=== PATIENT | male | born 1970 | race Caucasian/White ===

== ENCOUNTER 2018-12-07 03:28 | Observation (INO) ==
[2018-12-07] MEDS ORDERED: Aspirin 81 MG TAB.CHEW PO ONE (03:32)
[2018-12-07] MEDS ORDERED: Nitroglycerin 0.4 MG TAB.SUBL SL PRN ×2 (03:32→09:24)
--- NOTE | 2018-12-07 03:47 | Emergency Department Note ---
Disposition Clinical Impression: Elevated troponin, Atrial fibrillation with RVR Chest pain Qualifiers: Chest pain type: other chest pain Qualified Code(s): R07.89 - Other chest pain; R07.8 - Other chest pain Disposition: Admitted As Inpatient Condition: Undetermined Instructions: Chest Pain (ED) Referrals: Bruce Tripathi DO [Primary Care Provider] - Forms: ED Satisfaction Letter Time of Disposition: 06:32 Chest Pain HPI - General Stated Complaint: chest pain, rt shoulder/arm pain Time Seen by Provider: 12/07/18 03:32 Source: patient, family Mode of arrival: ambulatory Limitations: no limitations Vital Signs Reviewed: Yes Nursing Notes Reviewed: Yes - History of Present Illness HPI Narrative: 48-year-old male past medical history of atrial fibrillation requiring electrical cardioversion, 3 prior myocardial infarctions was 7 stent placements. Most recent IA in 2014. Patient is on clopidogrel as anticoagulation Patient states that approximately 1 AM he was walking up the stairs after coming back from work and experienced sudden onset crushing midsternal chest pain with radiation into his right shoulder and upper extremity. Patient states shortness of breath and diaphoresis Patient attempted to rest after this onset thinking that it would pass but symptoms continued to worsen. Patient states that symptoms are similar to his prior heart attacks. Pt complaint: chest pain Onset (ago): hour(s) Duration: gradually worsening Onset: during exertion Pain Location: substernal, right chest Severity: severe Severity scale (1-10): 10 Quality: other (Crushing) Pain Radiation: RUE Improves with: nothing Worsens with: exertion Associated symptoms: Reports: nausea, diaphoresis, dyspnea, palpitations Treatments prior to arrival chest pain: none - Related Data Home Medications Medication Instructions Recorded Confirmed Metoprolol [Lopressor] 50 mg PO BID 11/03/15 04/16/18 Sertraline [Zoloft] 150 mg PO HS 11/03/15 04/16/18 Losartan Potassium [Cozaar] 50 mg PO HS 01/27/16 04/16/18 Nitroglycerin [Nitrostat] 0.4 mg SL Q5-10MIN PRN 01/27/16 02/19/18 Isosorbide MONOnitrate (24 HR) 30 mg PO HS 11/08/17 04/16/18 [Imdur] Buspirone HCl [Buspar] 7.5 mg PO BID 02/19/18 04/16/18 Clopidogrel [Plavix] 75 mg PO HS 02/19/18 04/16/18 buPROPion HCl [Bupropion HCl Sr] 200 mg PO BID 02/19/18 04/16/18 metFORMIN [Glucophage] 500 mg PO BIDWM 02/19/18 04/16/18 Aspirin Enteric Coated [Aspirin EC] 81 mg DAILY 04/16/18 04/16/18 Previous Rx's Medication Instructions Recorded OxyCODONE/APAP 5/325 [Percocet 1 each PO Q6HR PRN 7 Days #14 04/16/18 5/325 MG] tablet Allergies Allergy/AdvReac Type Severity Reaction Status Date / Time Sulfa (Sulfonamide Allergy Rash Verified 04/16/18 10:44 Antibiotics) promethazine [From Phenergan] AdvReac Agitated Verified 04/16/18 10:44 All systems ED: reviewed and negative except as stated. Review of Systems: As Per HPI Cardiovascular: Reports: chest pain, palpitations, dyspnea on exertion Respiratory: Reports: dyspnea Gastrointestinal: Reports: nausea. Denies: abdominal pain, vomiting Musculoskeletal: Denies: back pain, neck pain Neurological: Reports: headache, weakness, numbness, paresthesias, other (Lightheadedness/dizziness) Chest Pain PMH - Past Medical History Medical history: Reports: coronary artery disease, diabetes, hyperlipidemia, hypertension Surgical history: Reports: angioplasty/stent, other Psychiatric history: Reports: anxiety, depression, panic disorder, prior suicide attempt - Social History Smoking Status: Current every day smoker Alcohol use: Reports: occasionally Drug use: Reports: none Physical Exam - General Limitations: no limitations General appearance: alert, in distress - Head Head exam: atraumatic, normocephalic, normal inspection - Eye Eye exam: Present: normal appearance, PERRL, EOMI. Absent: scleral icterus, conjunctival injection - Neck Neck exam: Present: normal inspection, trachea midline - Chest Chest inspection: Present: normal inspection, symmetric chest wall rise. Ab sent: tenderness - Respiratory Respiratory exam: Present: normal lung sounds bilaterally. Absent: respiratory distress, wheezes, stridor, accessory muscle use, prolonged expiratory phase - Cardiovascular Cardiovascular exam: Present: tachycardia, irregular rhythm, normal heart sounds, +S1, +S2. Absent: systolic murmur, diastolic murmur, rubs, gallop, clicks, JVD, +S3, +S4 - Abdominal Exam Abdominal exam: Present: soft, Non-Tender, normal bowel sounds. Absent: distention, guarding, rebound, rigidity, organomegaly - Extremities Exam Extremities exam: Present: normal inspection. Absent: pedal edema - Neurological Exam Neurological exam: Present: alert, oriented X3 - Psychiatric Psychiatric exam: Present: anxious - Skin Skin exam: Present: warm, intact, normal color, diaphoresis. Absent: rash, cyanosis, erythema, pallor, mottled Course Course Narrative: A. fib with RVR, concerned for ACS EKG/old EKG, chest x-ray, troponin, BNP, PT/PTT/INR Diltiazem titration for management of A. fib with RVR Nitroglycerin for management chest pain. - Reevaluation(s) Reevaluation #1: Patient given one sublingual nitroglycerin with complete resolution of his symptoms. Patient still A. fib with RVR We will proceed with Cardizem drip Patient will be admitted to hospitalist medicine service for further evaluation and management of new onset A. fib with RVR Vital Signs Temperature 98.0 F 12/07/18 03:36 Pulse Rate 124 12/07/18 03:36 Respiratory Rate 20 12/07/18 03:36 Blood Pressure 141/92 12/07/18 03:36 O2 Sat by Pulse Oximetry 96 12/07/18 03:36 Temperature 98.0 F 12/07/18 03:36 Pulse Rate 90 12/07/18 06:21 Respiratory Rate 17 12/07/18 06:21 Blood Pressure 95/63 12/07/18 06:21 O2 Sat by Pulse Oximetry 98 12/07/18 06:21 Oxygen Delivery Oxygen Delivery Room Air Chest Pain - Lab Data Lab results reviewed: Yes I reviewed the patient's lab results. Result diagrams: 12/07/18 04:24 12/07/18 04:24 Lab Results 12/07/18 12/07/18 12/07/18 Range/Units 04:24 04:24 04:24 WBC 12.2 H (4.3-11.1) K/mcL RBC 5.71 H (4.19-5.50) M/mcL Hgb 15.2 (12.9-16.9) g/dL Hct 46.9 (37.5-50.1) % MCV 82.1 L (83.0-100.0) fL MCH 26.6 L (28.0-33.3) pg MCHC 32.4 (31.6-35.5) g/dL RDW 13.8 (11.5-14.5) % Plt Count 299 (140-400) K/mcL MPV 10.9 (9.4-12.4) fL Immature Gran % 0.3 (0-4) % Seg Neutrophils % 64.4 % Lymphocytes % 28.0 % Monocytes % 6.0 % Eosinophils % 0.9 % Basophils % 0.4 % Neutrophils # 7.9 (1.6-8.9) K/mcL Lymphocytes # 3.4 (0.6-4.6) K/mcL Monocytes # 0.7 (0.0-1.3) K/mcL Eosinophils # 0.1 (0.0-0.6) K/mcL Basophils # 0.1 (0.0-0.2) K/mcL PT 10.8 (9.4-12.1) Seconds INR 1.0 APTT 27.4 (26.0-36.0) Seconds Heparin Anti-Xa, Unfract 0.00 L (0.30-0.70) IU/mL Sodium (136-145) mEq/L Potassium (3.5-5.1) mEq/L Chloride (98-107) mEq/L Carbon Dioxide (23-29) mEq/L BUN (6-20) mg/dL Creatinine (0.70-1.30) mg/dL Est GFR ( Amer) (> 60) Est GFR (Non-Af Amer) (> 60) BUN/Creatinine Ratio (6-26) Glucose (70-105) mg/dL Calculated Osmolality (280-300) Calcium (8.6-10.3) mg/dL Troponin I (< 0.04) ng/mL B-Natriuretic Peptide 51 (Less than 100) pg/mL 12/07/18 Range/Units 04:24 WBC (4.3-11.1) K/mcL RBC (4.19-5.50) M/mcL Hgb (12.9-16.9) g/dL Hct (37.5-50.1) % MCV (83.0-100.0) fL MCH (28.0-33.3) pg MCHC (31.6-35.5) g/dL RDW (11.5-14.5) % Plt Count (140-400) K/mcL MPV (9.4-12.4) fL Immature Gran % (0-4) % Seg Neutrophils % % Lymphocytes % % Monocytes % % Eosinophils % % Basophils % % Neutrophils # (1.6-8.9) K/mcL Lymphocytes # (0.6-4.6) K/mcL Monocytes # (0.0-1.3) K/mcL Eosinophils # (0.0-0.6) K/mcL Basophils # (0.0-0.2) K/mcL PT (9.4-12.1) Seconds INR APTT (26.0-36.0) Seconds Heparin Anti-Xa, Unfract (0.30-0.70) IU/mL Sodium 135 L (136-145) mEq/L Potassium 3.8 (3.5-5.1) mEq/L Chloride 105 (98-107) mEq/L Carbon Dioxide 23 (23-29) mEq/L BUN 20 (6-20) mg/dL Creatinine 1.02 (0.70-1.30) mg/dL Est GFR ( Amer) > 60 (> 60) Est GFR (Non-Af Amer) > 60 (> 60) BUN/Creatinine Ratio 20 (6-26) Glucose 189 H (70-105) mg/dL Calculated Osmolality 288 (280-300) Calcium 8.9 (8.6-10.3) mg/dL Troponin I 0.05 H* (< 0.04) ng/mL B-Natriuretic Peptide (Less than 100) pg/mL - Radiology Data Radiology results reviewed: Yes I reviewed the patient's radiology results. Chest X-Ray 12/07/18 03:32 IMPRESSION: No acute disease. D/ / Mauro Toth MD / Mauro Toth MD Interpreting Provider: Mauro Toth MD - EKG Data EKG attestation: Yes I reviewed and interpreted this EKG. EKG results narrative: Patient EKG shows atrial fibrillation with rapid ventricular response with a heart rate of 124 bpm QRS duration of 93 ms, QT/QTc interval 317/456 ms respectively. There are no significant ST segment elevations, depressions, pathologic Q waves, abnormal T-wave inversions, or any other signs of acute ischemic change. This EKG is generally consistent with the edition of atrial fibrillation from prior EKG performed on 11/08/2017. Heart Score - Score History: Moderately Suspicious EKG: Normal Age: 45-65 Risk Factors: Equal/Greater than 3 risk factor or history of atherosclerotic disease Troponin: 1-3x normal limit HEART Score Total: 5 Attestation Statement - Attestation Attestation: I, Bobby Walden DO, examined this patient [id number] and my medical decision-making was reviewed with Dr. Joss Fuller, Resident Physician. I agree with the documented findings, disposition and treatment plan as described except to the extent set forth below. I personally supervised and was present for the coronado/critical portions of the procedures completed by the resident documented below. Please see my progress notes for details.
--- NOTE | 2018-12-07 04:24 | Emergency Department Note ---
Disposition Clinical Impression: Elevated troponin, Atrial fibrillation with RVR Chest pain Qualifiers: Chest pain type: other chest pain Qualified Code(s): R07.89 - Other chest pain Disposition: Admitted As Inpatient Condition: Undetermined Time of Disposition: 06:36 General Adult HPI - General Chief complaint: ED Chest Pain Stated complaint: chest pain, rt shoulder/arm pain Time Seen by Provider: 12/07/18 03:32 Source: patient, family Mode of arrival: ambulatory Limitations: no limitations - History of Present Illness Pain Scale: 10 - Related Data Home Medications Medication Instructions Recorded Confirmed Metoprolol [Lopressor] 50 mg PO BID 11/03/15 04/16/18 Sertraline [Zoloft] 150 mg PO HS 11/03/15 04/16/18 Losartan Potassium [Cozaar] 50 mg PO HS 01/27/16 04/16/18 Nitroglycerin [Nitrostat] 0.4 mg SL Q5-10MIN PRN 01/27/16 02/19/18 Isosorbide MONOnitrate (24 HR) 30 mg PO HS 11/08/17 04/16/18 [Imdur] Buspirone HCl [Buspar] 7.5 mg PO BID 02/19/18 04/16/18 Clopidogrel [Plavix] 75 mg PO HS 02/19/18 04/16/18 buPROPion HCl [Bupropion HCl Sr] 200 mg PO BID 02/19/18 04/16/18 metFORMIN [Glucophage] 500 mg PO BIDWM 02/19/18 04/16/18 Aspirin Enteric Coated [Aspirin EC] 81 mg DAILY 04/16/18 04/16/18 Previous Rx's Medication Instructions Recorded OxyCODONE/APAP 5/325 [Percocet 1 each PO Q6HR PRN 7 Days #14 04/16/18 5/325 MG] tablet Allergies Allergy/AdvReac Type Severity Reaction Status Date / Time Sulfa (Sulfonamide Allergy Rash Verified 04/16/18 10:44 Antibiotics) promethazine [From Phenergan] AdvReac Agitated Verified 04/16/18 10:44 Cardiovascular: Reports: chest pain, palpitations, dyspnea on exertion Respiratory: Reports: dyspnea Gastrointestinal: Reports: nausea. Denies: abdominal pain, vomiting Musculoskeletal: Denies: back pain, neck pain Neurological: Reports: headache, weakness, numbness, paresthesias, other (Lightheadedness/dizziness) Past Medical History - Past Medical History Medical history: Reports: coronary artery disease, diabetes, hyperlipidemia, hypertension Surgical history: Reports: angioplasty/stent, other Psychiatric history: Reports: anxiety, depression, panic disorder, prior suicide attempt - Social History Smoking Status: Current every day smoker Smokeless Tobacco Status: No Alcohol use: Reports: occasionally Drug use: Reports: none Physical Exam - General Limitations: no limitations General appearance: alert, in distress Course Vital Signs Temperature 98.0 F 12/07/18 03:36 Pulse Rate 124 12/07/18 03:36 Respiratory Rate 20 12/07/18 03:36 Blood Pressure 141/92 12/07/18 03:36 O2 Sat by Pulse Oximetry 96 12/07/18 03:36 Temperature 98.0 F 12/07/18 03:36 Pulse Rate 90 12/07/18 06:21 Respiratory Rate 17 12/07/18 06:21 Blood Pressure 95/63 12/07/18 06:21 O2 Sat by Pulse Oximetry 98 12/07/18 06:21 Oxygen Delivery Oxygen Delivery Room Air Medical Decision Making - Lab Data Result diagrams: 12/07/18 04:24 12/07/18 04:24 Lab Results 12/07/18 12/07/18 12/07/18 Range/Units 04:24 04:24 04:24 WBC 12.2 H (4.3-11.1) K/mcL RBC 5.71 H (4.19-5.50) M/mcL Hgb 15.2 (12.9-16.9) g/dL Hct 46.9 (37.5-50.1) % MCV 82.1 L (83.0-100.0) fL MCH 26.6 L (28.0-33.3) pg MCHC 32.4 (31.6-35.5) g/dL RDW 13.8 (11.5-14.5) % Plt Count 299 (140-400) K/mcL MPV 10.9 (9.4-12.4) fL Immature Gran % 0.3 (0-4) % Seg Neutrophils % 64.4 % Lymphocytes % 28.0 % Monocytes % 6.0 % Eosinophils % 0.9 % Basophils % 0.4 % Neutrophils # 7.9 (1.6-8.9) K/mcL Lymphocytes # 3.4 (0.6-4.6) K/mcL Monocytes # 0.7 (0.0-1.3) K/mcL Eosinophils # 0.1 (0.0-0.6) K/mcL Basophils # 0.1 (0.0-0.2) K/mcL PT 10.8 (9.4-12.1) Seconds INR 1.0 APTT 27.4 (26.0-36.0) Seconds Heparin Anti-Xa, Unfract 0.00 L (0.30-0.70) IU/mL Sodium (136-145) mEq/L Potassium (3.5-5.1) mEq/L Chloride (98-107) mEq/L Carbon Dioxide (23-29) mEq/L BUN (6-20) mg/dL Creatinine (0.70-1.30) mg/dL Est GFR ( Amer) (> 60) Est GFR (Non-Af Amer) (> 60) BUN/Creatinine Ratio (6-26) Glucose (70-105) mg/dL Calculated Osmolality (280-300) Calcium (8.6-10.3) mg/dL Troponin I (< 0.04) ng/mL B-Natriuretic Peptide 51 (Less than 100) pg/mL 12/07/18 Range/Units 04:24 WBC (4.3-11.1) K/mcL RBC (4.19-5.50) M/mcL Hgb (12.9-16.9) g/dL Hct (37.5-50.1) % MCV (83.0-100.0) fL MCH (28.0-33.3) pg MCHC (31.6-35.5) g/dL RDW (11.5-14.5) % Plt Count (140-400) K/mcL MPV (9.4-12.4) fL Immature Gran % (0-4) % Seg Neutrophils % % Lymphocytes % % Monocytes % % Eosinophils % % Basophils % % Neutrophils # (1.6-8.9) K/mcL Lymphocytes # (0.6-4.6) K/mcL Monocytes # (0.0-1.3) K/mcL Eosinophils # (0.0-0.6) K/mcL Basophils # (0.0-0.2) K/mcL PT (9.4-12.1) Seconds INR APTT (26.0-36.0) Seconds Heparin Anti-Xa, Unfract (0.30-0.70) IU/mL Sodium 135 L (136-145) mEq/L Potassium 3.8 (3.5-5.1) mEq/L Chloride 105 (98-107) mEq/L Carbon Dioxide 23 (23-29) mEq/L BUN 20 (6-20) mg/dL Creatinine 1.02 (0.70-1.30) mg/dL Est GFR ( Amer) > 60 (> 60) Est GFR (Non-Af Amer) > 60 (> 60) BUN/Creatinine Ratio 20 (6-26) Glucose 189 H (70-105) mg/dL Calculated Osmolality 288 (280-300) Calcium 8.9 (8.6-10.3) mg/dL Troponin I 0.05 H* (< 0.04) ng/mL B-Natriuretic Peptide (Less than 100) pg/mL Attestation Statement - Attestation Attestation: I, Bobby Walden DO, examined this patient [id number] and my medical decision-making was reviewed with Dr. Joss Fuller, Resident Physician. I agree with the documented findings, disposition and treatment plan as described except to the extent set forth below. I personally supervised and was present for the coronado/critical portions of the procedures completed by the resident documented below. Please see my progress notes for details. 48-year-old male presents emergency room for evaluation of generalized chest tightness pain along with palpitations. Patient is a history of paroxysmal atrial fibrillation. His had to have electrical cardioversion completed in the past. Patient noticed the onset of the symptoms here today when he is going up some stairs. He has sharp pain in his right chest. It did not radiate up into his jaw or his back. Patient does have significant cardiovascular history with 7 stents in the past secondary to coronary artery disease. His most recent one was less than 6 months ago. Patient denies any falls trauma or injury. Patient does have some mild chest discomfort and pain on arrival here. His heart rate is elevated in the 120s to 150 range. He denies any shortness of breath fevers or chills. He has not had any nausea vomiting or diarrhea. No headache no vision change. No new medications. No other symptoms or issues. Patient is denying this being similar to his previous myocardial infarctions. Another had heart attack in the past pain went up into his right jaw and into his right shoulder blade. He does not have any of those symptoms at this time. Patient will have nitroglycerin aspirin and diltiazem drip started this point considering his EKG shows atrial fibrillation with rapid ventricular response. He feels like the presenting symptoms here today are more consistent with his rapid heart rate in comparison to actual myocardial infarction. His lungs are clear. His heart is irregular and tachycardic. Abdomen is soft no pulsatile masses or lesions. Patient has no history of aneurysm or dissection. Extremities otherwise normal. Patient has slight pressure and tightness in the chest wall at this time. Disposition to be determined workup and treatment course STABILIZATION abdomen established. Patient is otherwise describing no specific distress at this point. See detailed documentation the physical exam, medical intervention, medical decision-making and disposition in the resident physician's note. 45 minutes of critical care by the patient's treatment course secondary to multidisciplinary intervention and medication management. 0415 Patient's chest pain has completely resolved after one nitroglycerin. Patient will be started on heparin drip considering he does have a [id number] score of 3. Patient was only on aspirin and Plavix at baseline. He has no other acute concerns or issues. Patient is resting comfortably in the bed. Rate controlled be established in the disposition determined. Patient be monitoring emergency room until admission process is completed. 0600 Heparin drip is been started. Patient's heart rate is down in the 80s at this time with stable atrial fibrillation. His blood pressure did drop with the Cardizem at 5 mg per ourselves titrated down to 2. Patient is otherwise describing no complaints or symptoms at this time. His pain is gone is denying any sweating diaphoresis or discomfort. All the presenting issues here today are most likely secondary to the atrial fibrillation with rapid ventricular response. He did respond appropriately to medications. Patient was discussed with the hospitalist Dr. Figueroa who had no other concerns or issues at this point. Patient will be monitored here in the emergency department to the admission process is completed. Patient is otherwise stable and comfortable at the time of admission
[2018-12-07] MEDS ORDERED: *HR* Heparin 5,000 UNIT/ML VIAL IVP PRN (04:26)
[2018-12-07] MEDS ORDERED: *HR* Heparin 5,000 UNIT/ML VIAL IVP ONE (04:26)
[2018-12-07 04:49] LABS: Basophils # 0.1 K/mcL (0.0-0.2); Basophils % 0.4 %; Eosinophils # 0.1 K/mcL (0.0-0.6); Eosinophils % 0.9 %; Hematocrit 46.9 % (37.5-50.1); Hemoglobin 15.2 g/dL (12.9-16.9); Immature Granulocytes % 0.3 % (0-4); Lymphocytes # 3.4 K/mcL (0.6-4.6); Mean Corpuscular HGB Conc 32.4 g/dL (31.6-35.5); Mean Corpuscular Hemoglobin 26.6 pg (28.0-33.3); Mean Corpuscular Volume 82.1 fL (83.0-100.0); Mean Platelet Volume 10.9 fL (9.4-12.4); Monocytes # 0.7 K/mcL (0.0-1.3); Neutrophils # 7.9 K/mcL (1.6-8.9); Platelet Count 299 K/mcL (140-400); Red Blood Count 5.71 M/mcL (4.19-5.50); Red Cell Distribution Width 13.8 % (11.5-14.5); Segmented Neutrophils % 64.4 %
[2018-12-07 05:04] LABS: Prothrombin Time 10.8 Seconds (9.4-12.1)
[2018-12-07 05:07] LABS: Activated Partial Thrombo Time 27.4 Seconds (26.0-36.0)
[2018-12-07 05:10] LABS: BUN/Creatinine Ratio 20 (6-26); Blood Urea Nitrogen 20 mg/dL (6-20); Calcium 8.9 mg/dL (8.6-10.3); Carbon Dioxide 23 mEq/L (23-29); Chloride 105 mEq/L (98-107); Glucose 189 mg/dL (70-105); Osmolality,Calculated 288 (280-300); Potassium 3.8 mEq/L (3.5-5.1); Sodium 135 mEq/L (136-145); eGFR For Non-African Americans > 60 (> 60)
[2018-12-07 05:13] LABS: Troponin I 0.05 ng/mL (< 0.04)
[2018-12-07] MEDS ORDERED: Naloxone 0.4 MG/ML INJ IVP PRN (07:37)
--- NOTE | 2018-12-07 09:17 | Internal Med History&Physical ---
Date of Encounter: 12/07/18 Time of Encounter: 07:00 Internal Medicine - H&P: HPI Chief complaint: palpitations Admitted From: Home Plans for Post Hospital Care: Home History of present illness: Mr. Lester is a 48 year old male with history of CAD s/p stent in 11/2017 on DAPT and PAF s/p abalation 5 years ago at [facility] since the emergency department with complaint of palpitations. As per patient he was walking home and going up the stairs after playing poker with his friends and suddenly developed a burning sensation in the middle of her chest that was nonradiating, and 4 out of 10 at 1 AM. Immediately after the pain started he also felt as though his heart was"getting out of his chest". He has had long history of similar type of chest pain for more than 5 years now however the sensation of his heart racing and beating out of his chest was something new that he has not experienced in the past. He denies shortness of breath, calf swelling or tenderness, previous blood clots, orthopnea, PND or leg swelling. Chest pain self resolved however his heart continued to race so he decided to come to the emergency department. He cannot recall any alleviating or aggravating factors. He denies fever, chills, nausea, vomiting, diarrhea, heat or cold intolerance, cough, shortness of breath. However he does complain of diaphoresis when his symptoms started. He is a current everyday smoker, however denies sepsis of alcohol use. On the emergency department he was found to be in A. fib with RVR, elevated troponin of 0.04 so he was started on Cardizem drip and heparin drip and was endorsed for further management of atrial fibrillation Past Med Surg Social Fam HX - Past Medical History Medical history: coronary artery disease, diabetes, hyperlipidemia, hypertension Additional medical history: sleep apnea,morbid obesity, depression, hiatal hernia, meagan, rls, neurocardiogenic syncope, ahilles tendon tear, anxiety, chicken pox, gerd, patellofemoral joint disorder, spondlolisthesis, mi, Psychiatric history: anxiety, depression, panic disorder, prior suicide attempt - Past Surgical History Surgical History: angioplasty/stent, other Additional surgical history: Heart cath and stents x5. L4 and L5 surgery. bal loon surgery. right and left ACL repair bone spurs removed, achilles tendon repair x2 right and left, colonoscopy - Social History Smoking Status: Current every day smoker Smokeless Tobacco Status: No Alcohol use: occasionally Drug use: none Internal Medicine - H&P: Meds Metoprolol [Lopressor] 50 mg PO BID 11/03/15 [History] Sertraline [Zoloft] 150 mg PO HS 11/03/15 [History] Losartan Potassium [Cozaar] 50 mg PO HS 01/27/16 [History] Nitroglycerin [Nitrostat] 0.4 mg SL Q5-10MIN PRN 01/27/16 [History] Isosorbide MONOnitrate (24 HR) [Imdur] 30 mg PO HS 11/08/17 [History] Buspirone HCl [Buspar] 7.5 mg PO BID 02/19/18 [History] Clopidogrel [Plavix] 75 mg PO HS 02/19/18 [History] buPROPion HCl [Bupropion HCl Sr] 200 mg PO BID 02/19/18 [History] metFORMIN [Glucophage] 500 mg PO BIDWM 02/19/18 [History] Aspirin Enteric Coated [Aspirin EC] 81 mg DAILY 04/16/18 [History] OxyCODONE/APAP 5/325 [Percocet 5/325 MG] 1 each PO Q6HR PRN 7 Days #14 tablet 04/16/18 [Rx] Allergy/AdvReac Type Severity Reaction Status Date / Time Sulfa (Sulfonamide Allergy Rash Verified 04/16/18 10:44 Antibiotics) promethazine [From Phenergan] AdvReac Agitated Verified 04/16/18 10:44 All Systems PM: A 10-system review of systems was performed and is negative for pertinent findings except as documented above in the HPI. - Constitutional Vitals: Temp Pulse Resp BP Pulse Ox 97.4 F L 80 19 121/84 97 12/07/18 08:17 12/07/18 08:17 12/07/18 08:17 12/07/18 08:17 12/07/18 08:17 Exam: General: Patient is alert, oriented, no acute distress, orbits the obese Head: atraumatic, normocephalic, Eye: normal appearance, PERRL, no scleral icterus, no conjunctival injection ENT: mucous membranes moist, normal external ear exam Neck: normal inspection, trachea midline, full ROM, no carotid bruits Chest: normal inspection, symmetric chest rise Respiratory: Distant breath sounds secondary to body habitus Good respiratory effort. Bilateral breath sounds are clear without wheezing, crackles, or rhonchi. Cardiovascular: Distant heart sounds secondary to body habitus irregular s1 and s2 No clicks, rubs, gallops, or murmors. Abdomen: Bowel sounds present normoactive x-4 quadrants. Abdomen is soft, nond istended. no Epigastric tenderness. No guarding or rebound. No organomegaly noted, obese musculoskeletal: Spontaneously moving all extremities. no edema, no calf tenderness Skin: warm, dry, intact. Neuro: Alert and oriented x 3 no focal deficit Psych: Patient's affect is normal Internal Med - H&P Results - Labs CBC & Chem 7: 12/07/18 04:24 12/07/18 04:24 Labs: Short CBC 12/07/18 Range/Units 04:24 WBC 12.2 H (4.3-11.1) K/mcL Hgb 15.2 (12.9-16.9) g/dL Hct 46.9 (37.5-50.1) % Plt Count 299 (140-400) K/mcL Neutrophils # 7.9 (1.6-8.9) K/mcL BMP 12/07/18 04:24 Sodium 135 L Potassium 3.8 Chloride 105 Carbon Dioxide 23 BUN 20 Creatinine 1.02 Glucose 189 H Calcium 8.9 Cardiac Enzymes 12/07/18 Range/Units 04:24 Troponin I 0.05 H* (< 0.04) ng/mL - EKG Data -: EKG Interpreted by Myself (Atrial fibrillation, low voltage) - EKG Data Prior EKG available for review: yes When compared to previous EKG: there are significant changes (Atrial fibrillation) - Impressions ITS Impressions Chest X-Ray 12/07/18 03:32 IMPRESSION: No acute disease. D/ / Mauro Toth MD / Mauro Toth MD Interpreting Provider: Mauro Toth MD - Assessment and Plan (1) Atrial fibrillation with RVR Current Visit: Yes Status: Acute Assessment and plan: Has history of atrial fibrillation status post ablation at [facility] about 5 years ago chads vasc score of 3 Was started on Cardizem drip- currently rate is controlled so will discontinue drip and start his home metoprolol dose as he also has history of CAD. Was started on heparin drip- adjust as per protocol Cardiology was consulted will follow recommendations TSH U tox, alcohol level Echocardiogram Cardiac monitoring (2) Chest pain Current Visit: Yes Status: Acute Assessment and plan: Chest pain will rule out ACS Has history of CAD status post stentof Right PDA in November 2017 on dual antiplatelets We will continue with aspirin, hold Plavix as he has already completed one year of DAPT and now on heparin drip for Afib to avoid triple therapy. Troponin was 0.05 in the emergency department most likely secondary to A. fib with RVR ( supply vs demand mismatch) Continue to follow troponins every 6 hours along with EKG Cardiac monitoring Lipid panel, TSH, A1c Echocardiogram Cardiology was consulted as above will follow recommendations Continue with home medications if not contraindicated CXR: No acute disease. Qualifiers: Chest pain type: precordial pain Qualified Code(s): R07.2 - Precordial pain (3) Morbidly obese Current Visit: Yes Status: Acute Assessment and plan: Nutrition consult BMI is 52.2 (4) DVT prophylaxis Current Visit: Yes Status: Acute Assessment and plan: on heparin drip - Time Spent With Patient Total time spent is greater than 50% in coordination of care (as documented) at patient's floor/unit and/or counseling patient:
[2018-12-07] MEDS ORDERED: D5% in Water 1,000 ML IVC PRN (09:29)
[2018-12-07] MEDS ORDERED: Dextrose Gel 15 GM/37.5 ML TUBE PO PRN ×2 (09:29)
[2018-12-07] MEDS ORDERED: *HR* Dextrose 50 % in Water (Syg) 50 ML SYRINGE IVP PRN (09:29)
[2018-12-07] MEDS: Heparin 25,000 UNIT/250 ML D5W 25,000 UNIT/250 ML IV.SOLN IVC SCH ×2 (09:50→21:10)
--- NOTE | 2018-12-07 10:15 | Cardiology Consult Note ---
Date of Encounter: 12/07/18 Time of Encounter: 10:15 Assessment and Plan (1) Atrial fibrillation with RVR Current Visit: Yes Status: Acute Per Cardiology: History of A. fib ablation about 5 years ago at [facility]. Reports compliance with CPAP at home for JESSE. Previously not on anticoagulation. Currently on IV Cardizem drip 2.5 mg/hr. currently A. fib in the 80s to 90s and most recent blood pressure systolically in the 120s. Will increase Lopressor from home dose of 50 mg by mouth twice a day to 75 mg by mouth twice a day and wean off IV Cardizem. Echo pending. Regarding long-term anticoagulation, we will need to evaluate prior to discharge. On aspirin and Plavix with stenting in November 2017. (2) Elevated troponin Current Visit: Yes Status: Acute Per Cardiology: Trop 0.05 in setting of afib RVR. CP free. Continue to cycle troponins. Awaiting echo. Suspect demand ischemia in setting afib RVR, no cardiac rehab consult warranted. (3) CAD (coronary artery disease) Current Visit: No Status: Chronic Per Cardiology: Hx of CAD. [facility] 11/2017: Lesion Findings/Interventions * Left Main Coronary Artery The LMCA is angiographically free of disease. * Left Anterior Descending The Distal LAD is small in size.. There is a 20% stenosis in the Proximal LAD. There is a 70% stenosis in the Distal LAD. * Circumflex The Mid Circumflex is small in size.. There is a 95% stenosis in the Mid Circumflex. * Right Coronary Artery There is a 16 mm long, 95% stenosis in the Right PDA. The lesion has a ABI flow of 3. An intervention was performed on the Right PDA with a final stenosis of 0%. There were no lesion complications. The final ABI flow was 3. On asa, BB, long acting nitrate, will resume home statin and plavix. Qualifiers: Coronary Disease-Associated Artery/Lesion type: [place] artery [place] vs. transplanted heart: [place] heart Associated angina: angina presence unspecified Qualified Code(s): I25.10 - Atherosclerotic heart disease of [place] coronary artery without angina pectoris Discussion w patient/family: The assessment and plan as outlined above was discussed with the patient and/or family members who expressed understanding and agreement. All questions were answered. Thank you for involving us in the care of your patient. Please call with any questions. History of Present Illness Consult date: 12/07/18 Consult reason: Afib RVR Chief complaint: Palpitations History of present illness: Mr. Lester is a 48 year old male with a relevant past medical history of CAD, DM2, atrial fibrillation with ablation at [facility] about 5 years ago, morbid obesity, GERD, JESSE, neurocardiogenic syncope, nicotine abuse, history of anxiety, depression, and past suicide attempt. Cardiology consult for A. fib with RVR and mild troponin. Patient reports playing poker with friends last night because when home developed palpitations that lasted for a few hours. He denied any short of breath, dizziness, syncope, falls. Reports have some brief chest tightness initially and did take one sublingual nitroglycerin and symptoms resolved. Reports intermittent episodes of palpitations last for a few seconds and subsided about once per week over the past one month. Denies any chest pain symptoms. Reports compliance with medications. Reports on aspirin and Plavix at home. He denies any active bleeding or blood loss. Denies any history of falls. Reports compliance with CPAP for sleep apnea. He reports is in the process of cutting down smoking now smoking about a quarter pack per day-- indicates he did smoke 2 cigarettes plan cards last night. He reports drink alcohol about once per month for his monthly poker game and reports that for cans of beer last night. Past Med Surg Social Fam HX - Past Medical History Attestation: Yes The following information was validated with the patient. Source: patient, old records reviewed Medical history: coronary artery disease, diabetes, hyperlipidemia, hypertension Additional medical history: sleep apnea,morbid obesity, depression, hiatal hernia, jesse, rls, neurocardiogenic syncope, ahilles tendon tear, anxiety, chicken pox, gerd, patellofemoral joint disorder, spondlolisthesis, mi, Psychiatric history: anxiety, depression, panic disorder, prior suicide attempt - Past Surgical History Surgical History: angioplasty/stent, other Additional surgical history: Heart cath and stents x5. L4 and L5 surgery. balloon surgery. right and left ACL repair bone spurs removed, achilles tendon repair x2 right and left, colonoscopy - Social History Smoking Status: Current every day smoker Smokeless Tobacco Status: No Alcohol use: occasionally Drug use: none Medications and Allergies Metoprolol [Lopressor] 50 mg PO BID 11/03/15 [History] Sertraline [Zoloft] 150 mg PO HS 11/03/15 [History] Losartan Potassium [Cozaar] 50 mg PO HS 01/27/16 [History] Nitroglycerin [Nitrostat] 0.4 mg SL Q5-10MIN PRN 01/27/16 [History] Isosorbide MONOnitrate (24 HR) [Imdur] 30 mg PO HS 11/08/17 [History] Buspirone HCl [Buspar] 7.5 mg PO BID 02/19/18 [History] Clopidogrel [Plavix] 75 mg PO HS 02/19/18 [History] buPROPion HCl [Bupropion HCl Sr] 200 mg PO BID 02/19/18 [History] metFORMIN [Glucophage] 500 mg PO BIDWM 02/19/18 [History] Aspirin Enteric Coated [Aspirin EC] 81 mg DAILY 04/16/18 [History] OxyCODONE/APAP 5/325 [Percocet 5/325 MG] 1 each PO Q6HR PRN 7 Days #14 tablet 04/16/18 [Rx] Allergy/AdvReac Type Severity Reaction Status Date / Time Sulfa (Sulfonamide Allergy Rash Verified 04/16/18 10:44 Antibiotics) promethazine [From Phenergan] AdvReac Agitated Verified 04/16/18 10:44 All Systems Review: The remainder of the systems were reviewed and are negative - Cardiovascular Cardiovascular: as per HPI, chest pain at rest, palpitations Physical Examination Vital Signs, Last 4 Hours Temp Pulse Resp BP Pulse Ox 12/07/18 08:17 97.4 F L 80 19 121/84 97 12/07/18 06:21 90 17 95/63 98 General: Conversant, No Apparent Distress HEENT: Atraumatic, Normocephaly, Mucus Membranes Moist Neck: No JVD, Normal carotid pulses Cardiac: Reg Rate and Rhythm, Normal S1 and S2, No Murmur Lungs: Normal Breath Sounds, No Wheeze, Rales, Rhonchi Neuro: Alert and responsive, No focal deficits noted Abdomen: Soft, Non-Tender, Other (obese) Skin: No rashes noted on visualized skin Musculoskeletal: No Chest Wall Tenderness Extremities: No Clubbing, No Cyanosis, No Edema, Normal Pulses Results 12/07/18 04:24 12/07/18 04:24 Lab Results Laboratory Tests 12/07/18 12/07/18 12/07/18 04:24 04:24 04:24 WBC 12.2 H Hgb 15.2 Hct 46.9 INR 1.0 Creatinine Est GFR (Non-Af Amer) Troponin I B-Natriuretic Peptide 51 12/07/18 04:24 WBC Hgb Hct INR Creatinine 1.02 Est GFR (Non-Af Amer) > 60 Troponin I 0.05 H* B-Natriuretic Peptide ITS Impressions Chest X-Ray 12/07/18 03:32 IMPRESSION: No acute disease. D/ / Mauro Toth MD / Mauro Toth MD Interpreting Provider: Mauro Toth MD Active Medications Aspirin (Aspirin Ec) 81 mg PO DAILY [facility] Stop: 06/09/19 09:01 Dextrose/Water (Dextrose 50% (Syg)) 25 ml IVP AD PRN PRN Reason: Hypoglycemia Stop: 06/08/19 09:30 Glucagon (Glucagen) 1 mg IM ONCE PRN PRN Reason: Hypoglycemia Stop: 06/08/19 09:30 Glucose (Gluctose) 15 gm PO ONCE PRN PRN Reason: Hypoglycemia Stop: 06/08/19 09:30 Glucose (Gluctose) 30 gm PO ONCE PRN PRN Reason: Hypoglycemia Stop: 06/08/19 09:30 Heparin Sodium (Porcine) (Heparin) 9,000 unit IVP Q6HR PRN PRN Reason: SEE COMMENTS Stop: 06/08/19 04:27 Heparin Sodium (Porcine) (Heparin) 4,500 unit IVP Q6H PRN PRN Reason: SEE COMMENTS Stop: 06/08/19 04:27 Heparin Sodium/Dextrose (Heparin 25,000 Unit/250 Ml D5w) 25,000 unit in 250 mls @ 21.786 mls/hr IVC .[id number] SEAMUS; Protocol Stop: 06/08/19 04:31 Last Admin: 12/07/18 09:50 Dose: 14 unit/kg/hr, 21.8 mls/hr Documented by: Dextrose (Dextrose 5%) 1,000 mls @ 100 mls/hr IVC .Q10H PRN PRN Reason: HYPOGLYCEMIA Stop: 06/08/19 09:30 Insulin Human Lispro (Humalog) 0 units SQ TIDAC [facility]; Protocol Stop: 06/08/19 11:31 Insulin Human Lispro (Humalog) 0 units SQ HS [facility]; Protocol Stop: 06/08/19 21:01 Isosorbide Mononitrate (Imdur) 30 mg PO HS [facility] Stop: 06/08/19 21:01 Metoprolol Tartrate (Lopressor) 50 mg PO BID [facility] Stop: 06/08/19 09:31 Naloxone HCl (Narcan) 0.4 mg IVP Q2MPRN PRN PRN Reason: SEE COMMENTS Stop: 06/08/19 07:38 Nitroglycerin (Nitroglycerin) 0.4 mg SL Q5MPRN PRN PRN Reason: Chest Pain Stop: 06/08/19 03:33 Last Admin: 12/07/18 04:01 Dose: 0.4 mg Documented by: - Imaging and Cardiology Echo: pending Cardiac cath: report reviewed - EKG Interpretation EKG results cardiology: personally reviewed (afib RVR) Consult Discharge Plan - Plan Referrals: Bruce Tripathi DO [Primary Care Provider] - (Appointment has been requested. )
[2018-12-07 10:29] LABS: Ethanol < 10 mg/dL (Less than 10); Magnesium 2.1 mg/dL (1.6-2.6); Phosphorous 4.7 mg/dL (2.7-4.5)
[2018-12-07 10:33] LABS: Troponin I 0.05 ng/mL (< 0.04)
--- NOTE | 2018-12-07 11:33 | Event Note ---
Date of Encounter: 12/07/18 Time of Encounter: 11:30 - Cardiology Event Note Correction: per discussion with Dr. Yana Britton, it appears patient has not had ablation, but hx of DCCV. Plans for [facility] tomorrow.
[2018-12-07] MEDS: Insulin LISPRO 300 UNITS/3 ML VIAL SQ SCH ×2 (11:46→16:39)
[2018-12-07] MEDS ORDERED: Perflutren Lipid Microsphere 1.3 ML in 0.9 % Sodium Chloride 8.7 ML IVP ONE (13:34)
[2018-12-07] MEDS: *HR* Heparin 5,000 UNIT/ML VIAL IVP PRN (15:36)
[2018-12-07] MEDS ORDERED: Isosorbide MONOnitrate (24 HR) 30 MG TAB.ER.24H PO SCH (21:00)
[2018-12-07] MEDS ORDERED: Insulin LISPRO 300 UNITS/3 ML VIAL SQ SCH (21:00)
[2018-12-08 04:55] LABS: Basophils # 0.1 K/mcL (0.0-0.2); Eosinophils # 0.2 K/mcL (0.0-0.6); Hematocrit 47.3 % (37.5-50.1); Hemoglobin 15.3 g/dL (12.9-16.9); Immature Granulocytes % 0.4 % (0-4); Lymphocytes # 3.3 K/mcL (0.6-4.6); Lymphocytes % 36.1 %; Mean Corpuscular HGB Conc 32.3 g/dL (31.6-35.5); Mean Corpuscular Hemoglobin 26.6 pg (28.0-33.3); Mean Corpuscular Volume 82.3 fL (83.0-100.0); Mean Platelet Volume 10.7 fL (9.4-12.4); Monocytes # 0.7 K/mcL (0.0-1.3); Monocytes % 7.8 %; Neutrophils # 4.8 K/mcL (1.6-8.9); Platelet Count 297 K/mcL (140-400); Red Blood Count 5.75 M/mcL (4.19-5.50); Red Cell Distribution Width 13.9 % (11.5-14.5); Segmented Neutrophils % 52.7 %
[2018-12-08 05:15] LABS: BUN/Creatinine Ratio 19 (6-26); Blood Urea Nitrogen 19 mg/dL (6-20); Calcium 8.8 mg/dL (8.6-10.3); Carbon Dioxide 24 mEq/L (23-29); Chloride 108 mEq/L (98-107); Glucose 110 mg/dL (70-105); Osmolality,Calculated 287 (280-300); Potassium 4.2 mEq/L (3.5-5.1); Sodium 137 mEq/L (136-145); eGFR For Non-African Americans > 60 (> 60)
[2018-12-08] MEDS: *HR* Heparin 5,000 UNIT/ML VIAL IVP PRN (06:09)
[2018-12-08] MEDS: Insulin LISPRO 300 UNITS/3 ML VIAL SQ SCH ×3 (07:48→17:47)
[2018-12-08] MEDS ORDERED: Aspirin Enteric Coated 81 MG Tablet PO SCH (09:00)
[2018-12-08] MEDS ORDERED: Heparin 1,000 UNITS/500 mL 500 ML ONE (10:05)
[2018-12-08] MEDS ORDERED: Nitroglycerin 1,000 MCG/10 ML VIAL IV ONE (10:05)
[2018-12-08] MEDS ORDERED: ISOVUE-370 200 ML INFUS..BTL ONE (10:05)
[2018-12-08] MEDS ORDERED: *HR* Heparin 10,000 UNIT/10 ML VIAL ONE (10:05)
[2018-12-08] MEDS ORDERED: 0.9 % Sodium Chloride 1,000 ML ONE (10:05)
[2018-12-08 10:10] LABS: Estimated Average Glucose 131 mg/dl; Hemoglobin A1C 6.2 %
[2018-12-08 10:29] LABS: Amphetamine Screen,Urine Negative ng/mL (Cutoff=1000); Barbiturate Screen,Urine Negative ng/mL (Cutoff=200); Benzodiazepines Screen,Urine Negative ng/mL (Cutoff=200); Cannabinoid Screen,Urine Negative ng/mL (Cutoff = 50); Cocaine Screen,Urine Negative ng/mL (Cutoff= 300); Opiate Screen,Urine Negative ng/mL (Cutoff=300); Phencyclidine Screen,Urine Negative ng/mL (Cutoff=25)
--- NOTE | 2018-12-08 10:45 | Electrocardiograph Report ---
[address] [address] Test Date: 2018-12-07 Pat Name: Conner Lester Department: [id number] Room: 3B Gender: M Veterinary Practitioner: : 1970 Requested By: Bobby Walden Order Number: [id number] Reading MD: Ilene Bradley Measurements Intervals [place] Rate: 124 P: IA: QRS: 5 QRSD: 93 T: 29 QT: 317 QTc: 456 Interpretive Statements Atrial fibrillation Low voltage, precordial leads Baseline wander Electronically Signed On 12-08-2018 10:44:14 EDT by Ilene Bradley
[2018-12-08] MEDS ORDERED: *HR* Midazolam HCl 2 MG/2 ML VIAL ONE (11:48)
[2018-12-08] MEDS ORDERED: *HR* FentaNYL (PF) 100 MCG/2 ML VIAL ONE (11:48)
[2018-12-08] MEDS ORDERED: Verapamil 5 MG/2 ML VIAL ONE (11:59)
--- NOTE | 2018-12-08 13:07 | Invasive Diagnostic Lab Proc ---
Name: Conner Lester Date of Study: 12/08/2018 Date: 1970 Ht: 68.0in Medical Record#: [id number] Age: 48 Wt: 302.03lb Gender: Male BSA: 2.44 Order #: [id number] BMI: 45.93 Physicians Procedure Physician: Saima Gil MD Referring MD: Referring MD: Staff Name Position Time In Robert Allen RN Vendor Relationship Manager 11:54 AM Prince Glass RN Vendor Relationship Manager 11:54 AM Robert Allen RN Monitor 11:54 AM Jenn Helms RT (R) Scrub 11:54 AM Indications Indication Non-Stemi Procedures Performed Procedure CORONARY ARTERY ANGIO S&I Pre-Procedure Checklist Informed consent is complete signed and on chart. H&P is on chart. ID band is on and ID verified with patient. Patient NPO for procedure The procedure was described for the patient and questions were answered. ECG is on chart. Plan of Care Patient will tolerate the procedure without complications. Adequate level of comfort will be maintained. Hemodynamics will remain stable Patient will recover from procedure without complications. Respiratory function will be maintained. Cardiac rhythm will remain stable. Patient temperature will be maintained. Patient and/or family have verbalized understanding of the procedure. Patient Education Chief Complaint/Reason for Test: Cardiac Cath Developmental Category: Adult (18-64 years) Developmentally Appropriate for Age: Yes Learning Barriers: None Education Needs: Procedure Education Method: Verbal Information Taught: Cardiac Cath Educational Evaluation: Able to repeat information Intravenous Access Time IV Size Location DC'd Fluid/Drip Rate Units RN 20g 1 1/" Patent On Arrival Rt Arm 0.9NaCl 25 ml/hr Allergies SULFA,PHENERGAN,AMADO INHIBITORS, [employer] SULFA,PHENERGAN,AMADO INHIBITORS, [employer] SULFA,PHENERGAN,AMADO INHIBITORS, [employer] SULFA,PHENERGAN,AMADO INHIBITORS, [employer] SULFA,PHENERGAN,AMADO INHIBITORS, [employer] SULFA,PHENERGAN,AMADO INHIBITORS, [employer] SULFA,PHENERGAN,AMADO INHIBITORS, [employer] SULFA,PHENERGAN,AMADO INHIBITORS, [employer] SULFA,PHENERGAN,AMADO INHIBITORS, [employer] SULFA,PHENERGAN,AMADO INHIBITORS, [employer] SULFA,PHENERGAN,AMADO INHIBITORS, [employer] SULFA,PHENERGAN,AMADO INHIBITORS, [employer] SULFA,PHENERGAN,AMADO INHIBITORS, [employer] SULFA,PHENERGAN,AMADO INHIBITORS, [employer] SULFA,PHENERGAN,AMADO INHIBITORS, [employer] SULFA,PHENERGAN,AMADO INHIBITORS, [employer] SULFA,PHENERGAN,AMADO INHIBITORS, [employer] SULFA,PHENERGAN,AMADO INHIBITORS, [employer] SULFA,PHENERGAN,AMADO INHIBITORS, [employer] SULFA,PHENERGAN,AMADO INHIBITORS, [employer] SULFA,PHENERGAN,AMADO INHIBITORS, [employer] SULFA,PHENERGAN,AMADO INHIBITORS, [employer] SULFA,PHENERGAN,AMADO INHIBITORS, [employer] SULFA,PHENERGAN,AMADO INHIBITORS, [employer] SULFA,PHENERGAN,AMADO INHIBITORS, [employer] SULFA,PHENERGAN,AMADO INHIBITORS, [employer] SULFA,PHENERGAN,AMADO INHIBITORS, [employer] SULFA,PHENERGAN,AMADO INHIBITORS, [employer] SULFA,PHENERGAN,AMADO INHIBITORS, [employer] SULFA,PHENERGAN,AMADO INHIBITORS, [employer] SULFA,PHENERGAN,AMADO INHIBITORS, [employer] SULFA,PHENERGAN,AMADO INHIBITORS, [employer] SULFA,PHENERGAN,AMADO INHIBITORS, [employer] ASA SULFA,PHENERGAN,AMADO INHIBITORS, [employer] SULFA,PHENERGAN,AMADO INHIBITORS, [employer] SULFA,PHENERGAN,AMADO INHIBITORS, [employer] SULFA,PHENERGAN,AMADO INHIBITORS, [employer] SULFA,PHENERGAN,AMADO INHIBITORS, [employer] SULFA,PHENERGAN,AMADO INHIBITORS, [employer] SULFA,PHENERGAN,AMADO INHIBITORS, [employer] SULFA,PHENERGAN,AMADO INHIBITORS, [employer] SULFA,PHENERGAN,AMADO INHIBITORS, [employer] SULFA,PHENERGAN,AMADO INHIBITORS, [employer] SULFA,PHENERGAN,AMADO INHIBITORS, [employer] SULFA,PHENERGAN,AMADO INHIBITORS, [employer] SULFA,PHENERGAN,AMADO INHIBITORS, [employer] SULFA,PHENERGAN,AMADO INHIBITORS, [employer] SULFA,PHENERGAN,AMADO INHIBITORS, [employer] SULFA,PHENERGAN,AMADO INHIBITORS, [employer] SULFA,PHENERGAN,AMADO INHIBITORS, [employer] SULFA,PHENERGAN,AMADO INHIBITORS, [employer] SULFA,PHENERGAN,AMADO INHIBITORS, [employer] SULFA,PHENERGAN,AMADO INHIBITORS, [employer] SULFA,PHENERGAN,AMADO INHIBITORS, [employer] SULFA,PHENERGAN,AMADO INHIBITORS, [employer] SULFA,PHENERGAN,AMADO INHIBITORS, [employer] SULFA,PHENERGAN,AMADO INHIBITORS, [employer] SULFA,PHENERGAN,AMADO INHIBITORS, [employer] SULFA,PHENERGAN,AMADO INHIBITORS, [employer] SULFA,PHENERGAN,AMADO INHIBITORS, [employer] SULFA,PHENERGAN,AMADO INHIBITORS, [employer] SULFA,PHENERGAN,AMADO INHIBITORS, [employer] SULFA,PHENERGAN,AMADO INHIBITORS, [employer] SULFA,PHENERGAN,AMADO INHIBITORS, [employer] SULFA,PHENERGAN,AMADO INHIBITORS, [employer] SULFA,PHENERGAN,AMADO INHIBITORS, [employer] SULFA,PHENERGAN,AMADO INHIBITORS, [employer] SULFA,PHENERGAN,AMADO INHIBITORS, [employer] SULFA,PHENERGAN,AMADO INHIBITORS, [employer] SULFA,PHENERGAN,AMADO INHIBITORS, [employer] SULFA,PHENERGAN,AMADO INHIBITORS, [employer] SULFA,PHENERGAN,AMADO INHIBITORS, [employer] SULFA,PHENERGAN,AMADO INHIBITORS, [employer] SULFA,PHENERGAN,AMADO INHIBITORS, [employer] SULFA,PHENERGAN,AMADO INHIBITORS, [employer] SULFA,PHENERGAN,AMADO INHIBITORS, [employer] SULFA,PHENERGAN,AMADO INHIBITORS, [employer] SULFA,PHENERGAN,AMADO INHIBITORS, [employer] SULFA,PHENERGAN,AMADO INHIBITORS, [employer] SULFA,PHENERGAN,AMADO INHIBITORS, [employer] SULFA,PHENERGAN,AMADO INHIBITORS, [employer] SULFA,PHENERGAN,AMADO INHIBITORS, [employer] SULFA,PHENERGAN,AMADO INHIBITORS, [employer] SULFA,PHENERGAN,AMADO INHIBITORS, [employer] SULFA,PHENERGAN,AMADO INHIBITORS, [employer] SULFA,PHENERGAN,AMADO INHIBITORS, [employer] SULFA,PHENERGAN,AMADO INHIBITORS, [employer] SULFA,PHENERGAN,AMADO INHIBITORS, [employer] SULFA,PHENERGAN,AMADO INHIBITORS, [employer] SULFA,PHENERGAN,AMADO INHIBITORS, [employer] SULFA,PHENERGAN,AMADO INHIBITORS, [employer] SULFA,PHENERGAN,AMADO INHIBITORS, [employer] SULFA,PHENERGAN,AMADO INHIBITORS, [employer] SULFA,PHENERGAN,AMADO INHIBITORS, [employer] SULFA,PHENERGAN,AMADO INHIBITORS, [employer] SULFA,PHENERGAN,AMADO INHIBITORS, [employer] SULFA,PHENERGAN,AMADO INHIBITORS, [employer] SULFA,PHENERGAN,AMADO INHIBITORS, [employer] SULFA,PHENERGAN,AMADO INHIBITORS, [employer] SULFA,PHENERGAN,AMADO INHIBITORS, [employer] SULFA,PHENERGAN,AMADO INHIBITORS, [employer] SULFA,PHENERGAN,AMADO INHIBITORS, [employer] SULFA,PHENERGAN,AMADO INHIBITORS, [employer] SULFA,PHENERGAN,AMADO INHIBITORS, [employer] SULFA,PHENERGAN,AMADO INHIBITORS, [employer] SULFA,PHENERGAN,AMADO INHIBITORS, [employer] SULFA,PHENERGAN,AMADO INHIBITORS, [employer] SULFA,PHENERGAN,AMADO INHIBITORS, [employer] SULFA,PHENERGAN,AMADO INHIBITORS, [employer] SULFA,PHENERGAN,AMADO INHIBITORS, [employer] SULFA,PHENERGAN,AMADO INHIBITORS, [employer] SULFA,PHENERGAN,AMADO INHIBITORS, [employer] SULFA,PHENERGAN,AMADO INHIBITORS, [employer] SULFA,PHENERGAN,AMADO INHIBITORS, [employer] SULFA,PHENERGAN,AMADO INHIBITORS, [employer] SULFA,PHENERGAN,AMADO INHIBITORS, [employer] SULFA,PHENERGAN,AMADO INHIBITORS, [employer] SULFA,PHENERGAN,AMADO INHIBITORS, [employer] SULFA,PHENERGAN,AMADO INHIBITORS, [employer] SULFA,PHENERGAN,AMADO INHIBITORS, [employer] SULFA,PHENERGAN,AMADO INHIBITORS, [employer] SULFA,PHENERGAN,AMADO INHIBITORS, [employer] SULFA,PHENERGAN,AMADO INHIBITORS, [employer] SULFA,PHENERGAN,AMADO INHIBITORS, [employer] SULFA,PHENERGAN,AMADO INHIBITORS, [employer] SULFA,PHENERGAN,AMADO INHIBITORS, [employer] SULFA,PHENERGAN,AMADO INHIBITORS, [employer] SULFA,PHENERGAN,AMADO INHIBITORS, [employer] SULFA,PHENERGAN,AMADO INHIBITORS, [employer] SULFA,PHENERGAN,AMADO INHIBITORS, [employer] SULFA,PHENERGAN,AMADO INHIBITORS, [employer] SULFA,PHENERGAN,AMADO INHIBITORS, [employer] SULFA,PHENERGAN,AMADO INHIBITORS, [employer] SULFA,PHENERGAN,AMADO INHIBITORS, [employer] SULFA,PHENERGAN,AMADO INHIBITORS, [employer] SULFA,PHENERGAN,AMADO INHIBITORS, [employer] SULFA,PHENERGAN,AMADO INHIBITORS, [employer] Sulfa (Sulfonamide Antibiotics) SULFA,PHENERGAN,AMADO INHIBITORS, [employer] SULFA (sulfonamide) promethazine SULFA,PHENERGAN,AMADO INHIBITORS, [employer] SULFA,PHENERGAN,AMADO INHIBITORS, [employer] SULFA,PHENERGAN,AMADO INHIBITORS, [employer]RIT[employer] SULFA,PHENERGAN,AMADO INHIBITORS, [employer] SULFA,PHENERGAN,AMADO INHIBITORS, [employer] SULFA,PHENERGAN,AMADO INHIBITORS, [employer]RIT[employer] SULFA,PHENERGAN,AMADO INHIBITORS, [employer] SULFA,PHENERGAN,AMADO INHIBITORS, [employer] SULFA,PHENERGAN,AMADO INHIBITORS, [employer]RIT[employer] SULFA,PHENERGAN,AMADO INHIBITORS, [employer]RIT[employer] SULFA,PHENERGAN,AMADO INHIBITORS, [employer] SULFA,PHENERGAN,AMADO INHIBITORS, [employer] SULFA,PHENERGAN,AMADO INHIBITORS, [employer]RIT[employer] SULFA,PHENERGAN,AMADO INHIBITORS, [employer]RIT[employer] SULFA,PHENERGAN,AMADO INHIBITORS, [employer] SULFA,PHENERGAN,AMADO INHIBITORS, [employer] SULFA,PHENERGAN,AMADO INHIBITORS, [employer] SULFA,PHENERGAN,AMADO INHIBITORS, [employer]RIT[employer] SULFA,PHENERGAN,AMADO INHIBITORS, [employer] SULFA,PHENERGAN,AMADO INHIBITORS, [employer] SULFA,PHENERGAN,AMADO INHIBITORS, [employer] SULFA,PHENERGAN,AMADO INHIBITORS, [employer] SULFA,PHENERGAN,AMADO INHIBITORS, [employer]RIT[employer] SULFA,PHENERGAN,AMADO INHIBITORS, [employer] SULFA,PHENERGAN,AMADO INHIBITORS, [employer] SULFA,PHENERGAN,AMADO INHIBITORS, [employer] SULFA,PHENERGAN,AMADO INHIBITORS, [employer] SULFA,PHENERGAN,AMADO INHIBITORS, [employer] SULFA,PHENERGAN,AMADO INHIBITORS, [employer] SULFA,PHENERGAN,AMADO INHIBITORS, [employer] Vital Signs Time BP (mmHg) HR (bpm) O2 Sat. RR (bpm) LOC 11:56 AM / % 5 = Fully awake and oriented or at pre-proc level 11:56 AM / % 5 = Fully awake and oriented or at pre-proc level 12:11 PM / % 4 = Oriented but drowsy 12:26 PM / % 4 = Oriented but drowsy 11:55 AM 133 / 99 100 99 % 14 12:00 PM 139 / 77 95 97 % 11 12:05 PM 110 / 84 73 100 % 0 12:10 PM 125 / 81 88 98 % 7 12:15 PM 117 / 78 77 99 % 5 12:20 PM 127 / 88 85 98 % 5 12:25 PM 120 / 81 70 98 % 6 12:30 PM 121 / 61 80 94 % 16 12:35 PM 122 / 78 72 98 % 15 12:40 PM 117 / 74 74 95 % 13 Procedural Medications Time Medication Dose Units Method Given By 11:56 AM Oxygen 2 L/min nasal cannula Prince Glass RN 11:56 AM Versed 1 mg Intravenous rPince Glass RN 11:56 AM Fentanyl 50 mcg Intravenous Prince Glass RN 12:16 PM Versed 0.5 mg Intravenous Prince Glass RN 12:16 PM Fentanyl 25 mcg Intravenous Prince Glass RN 12:25 PM Lidocaine 2% 1 ml Subcutaneous Saima Gil MD 12:25 PM Versed 0.5 mg Intravenous Prince Glass RN 12:25 PM Fentanyl 25 mcg Intravenous Prince Glass RN 12:27 PM Heparin 3000 units Nitroglycerin 200 mcg Verapamil 2.5 mg Intraarterial Saima Gil MD ASA Classification: CLASS II- Mild systemic disease (i.e. well-controlled diabetes, hypertension, asthma, cigarette smoking) July Score Preprocedure Postprocedure Activity 2- Moves 4 extremities sustained head lift Activity 2- Moves 4 extremities sustained head lift Circulation 2- SBP +/= 20 points of pre-anesthetic level Circulation 2- SBP +/= 20 points of pre-anesthetic level Consciousness 2- Awake and alert oriented x 3 Consciousness 2- Awake and alert oriented x 3 O2 Saturation 2- Able to maintain O2 satruation of 92% on room air O2 Saturation 2- Able to maintain O2 satruation of 92% on room air Respiratory 2- Able to deep breathe and cough well Respiratory 2- Able to deep breathe and cough well Total Score 10 Total Score 10 Contrast Agent: Isovue Diagnostic Contrast: 110 ml Total Contrast: 110 ml Fluoro Dose: 81 mGy Procedure Log Time Note Enter By 11:54 AM Case Start 11:54 AM CathStat 11:54 AM Vitals capture started with the following parameters, Patient=Adult, Interval=5 min, Initial Njhjcqvf=800 mmHg, Deflation Rate=3 mmHg, Cuff placed on Right Arm 11:54 AM Recorded ECG: HR=67 Condition=Condition 1 11:54 AM Pt arrived to rn labor delivery 1 at 11:54 cedwards 11:54 AM Prince Glass RN Position: Vendor Relationship Manager Time in: 11:54 cedwards 11:54 AM Robert Allen RN Position: Monitor Time in: 11:54 cedwards 11:55 AM Jenn Helms RT (R) Position: Scrub Time in: 11:54 cedwards 11:55 AM Patient charges- Angio tray pack, Navilyst 3mm J, Pulse Oximetry and ACIST tubing and transducer cedwards 11:55 AM IV Supplies used: J loop Angio Cath. cedwards 11:55 AM NV=633 bpm, AIBO=199/99 mmhg, SpO2=99.0 %, Resp=14 B/min, EtCO2=41 mmHg, Comment=AFIB 11:55 AM Physician arrived 11:55 cedwards 11:55 AM ASA Class CLASS II- Mild systemic disease (i.e. well-controlled diabetes, hypertension, asthma, cigarette smoking) cedwards 11:55 AM Meet and obiehenrry completed cedwards 11:55 AM Sign in performed according to hospital policy. Informed consent was obtained. cedwards 11:55 AM Procedure start 11:55 cedwards 11:55 AM Hair removed from procedure site in procedure lab using clippers. Right wrist and Right groin prepped with Chloraprep by Robert Allen RN, then patient was draped. Skin intact. cedwards 11:56 AM Time: :56 Oxygen on at 2 L/min per nasal cannula by Prince Glass RN cedwards 11:56 AM Time: :56 Versed 1 mg Intravenous Given by Prince Glass RN cedwards 11:56 AM Time: 11:56 Fentanyl 50 mcg Intravenous Given by Prince Glass RN cedwards 11:56 AM Time: 11:56 Patient comfortable and pain free: Yes cedwards 11:56 AM Time: :56LOC: 5 = Fully awake and oriented or at pre-proc level cedwards 12:00 PM HR=95 bpm, OTFB=387/77 mmhg, SpO2=97.0 %, Resp=11 B/min, EtCO2=35 mmHg, Comment=AFIB 12:02 PM Pressure channel 2 zeroed. 12:05 PM HR=73 bpm, SUGC=673/84 mmhg, FbA3=351.0 %, Resp=0 B/min, EtCO2=35 mmHg, Comment=AFIB 12:10 PM HR=88 bpm, ASBB=180/81 mmhg, SpO2=98.0 %, Resp=7 B/min, EtCO2=26 mmHg, Comment=AFIB 12:11 PM Time: :56LOC: 5 = Fully awake and oriented or at pre-proc level cedwards 12:11 PM Time: 11:56 Patient comfortable and pain free: Yes cedwards 12:15 PM HR=77 bpm, LFAW=377/78 mmhg, SpO2=99.0 %, Resp=5 B/min, EtCO2=35 mmHg, Comment=AFIB 12:16 PM Time: 12:16 Versed 0.5 mg Intravenous Given by Prince Glass RN cedwards 12:16 PM Time: 12:16 Fentanyl 25 mcg Intravenous Given by Prince Glass RN cedwards 12:20 PM HR=85 bpm, GWXB=017/88 mmhg, SpO2=98.0 %, Resp=5 B/min, EtCO2=35 mmHg, Comment=AFIB 12:24 PM Clinical Presentation: Unstable angina cedwards 12:24 PM Time out was performed according to hospital policy. Conscious sedation and anesthesia was achieved (see medication log with in this report above) cedwards 12:25 PM HR=70 bpm, FFDW=992/81 mmhg, SpO2=98.0 %, Resp=6 B/min, EtCO2=44 mmHg, Comment=AFIB 12:25 PM Time: 12:25 1 ml Lidocaine 2% to right radial Subcutaneous Given by Saima Gil MD cedwards 12:25 PM Time: 12:25 Versed 0.5 mg Intravenous Given by Prince Glass RN cedwards 12: PM Time: 12:25 Fentanyl 25 mcg Intravenous Given by Prince Glass RN cedwards 12: PM Access obtained by percutaneous puncture. 5/6Fr 11cm Terumo Glidesheath sheath placed in right Radial artery. [id number] cedwards 12:26 PM Time: 12:11 Patient comfortable and pain free: Yes cedwards 12: PM Time: 12:11LOC: 4 = Oriented but drowsy cedwards 12:27 PM Time: 12:27 Patient given 3,000 units Heparin, 200 mcg Nitroglycerin, and 2.5 mg Verapamil Intraarterial by Saima Gil MD. This is given to reduce risk of vessel spasm and thrombosis. cedwards 12:28 PM 0.035 260cm Navilyst 3mmJ wire [id number] cedwards 12:28 PM 5Fr FR 4 catheter inserted over the wire DN cedwards 12:28 PM RCA angiography performed in multiple views. cedwards 12:30 PM Recorded Pressure: Ao, HR=82, Condition=Condition 1 (Aorta) Ao 88/78/82 12:30 PM HR=80 bpm, CENO=012/61 mmhg, SpO2=94.0 %, Resp=16 B/min, EtCO2=28 mmHg, Comment=AFIB 12:31 PM Catheter removed cedwards 12:31 PM 5Fr FL 3.5 catheter inserted over the wire DNC cedwards 12:32 PM LCA angiography performed in multiple views. cedwards 12:32 PM Coronary Dominance: right cedwards 12:33 PM Recorded Pressure: Ao, HR=86, Condition=Condition 1 (Aorta) Ao 94/82/87 12:35 PM HR=72 bpm, LTXO=849/78 mmhg, SpO2=98.0 %, Resp=15 B/min, EtCO2=35 mmHg, Comment=AFIB 12:36 PM Catheter removed cedwards 12:37 PM Procedure completed at 12:37 12/08/2018 cedwards 12:37 PM Did you address ABI flow and Dominance? Yes cedwards 12:38 PM Sign out completed: Radiation Dose 939.04 mGy, 80.9 Gy/cm2 Fluoro Time: 2.3 Isovue 370 - 200ml contrast 110 ml given by Saima Gil MD. Complications: None. The patient was discharged out of the assistant laboratory director in stable condition. Sedation minutes 41. Cardiac Rehab Consult needed: No. Confirmed administered medications: Yes cedwards 12:39 PM Isovue 370 - 200ml,1 Bottle(s) used. cedwards 12:39 PM Arterial sheath pulled, Vasc Band closure device used and was Successful S/N. cedwards 12:39 PM 9 ml air in Vasc Band. cedwards 12:39 PM Estimated Blood Loss: minimal cedwards 12:39 PM Post ECG Atrial Fibrillation cedwards 12:39 PM Post Blood Pressure 122/78 cedwards 12:39 PM Information taught Cardiac Cath and Vasc Band cedwards 12:39 PM Education needs Procedure, Plan of Care, and Disease Process cedwards 12:40 PM Learning barriers :None cedwards 12:40 PM Education Methods Verbal cedwards 12:40 PM Education evaluation Able to repeat information cedwards 12:40 PM HR=74 bpm, KIXJ=556/74 mmhg, SpO2=95.0 %, Resp=13 B/min 12:40 PM Site status No bleeding/hematoma - Rt Wrist as reported by Jenn Helms RT (R) at 12:40 cedwards 12:40 PM Plavix, Effient or Brilinta given No cedwards 12:40 PM Family placed in consult room. cedwards 12:40 PM Complications: None cedwards 12:42 PM Time: 12:26LOC: 4 = Oriented but drowsy cedwards 12:42 PM Time: 12:26 Patient comfortable and pain free: Yes cedwards 12:44 PM Lesion found in Proximal LAD. Pre Stenosis: 20 Pre ABI Flow: cedwards 12:45 PM Lesion found in Distal LAD. Pre Stenosis: 70 Pre ABI Flow: cedwards 12:45 PM Lesion found in Mid Circumflex. Pre Stenosis: 95 Pre ABI Flow: cedwards 12:49 PM Report given to 3B RN Pt taken to 3B Room #55. 12:48 cedwards 12:50 PM Lesion found in Proximal RCA. Pre Stenosis: 20 Pre ABI Flow: cedwards 12:51 PM Lesion found in Mid RCA. Pre Stenosis: 40 Pre ABI Flow: cedwards 12:52 PM Lesion found in Mid LAD. Pre Stenosis: 50 Pre ABI Flow: cedwards 12:54 PM Lesion found in Right PDA. Pre Stenosis: 20 Pre ABI Flow: cedwards Complications Complication None None Hemodynamics Pressures Site Systolic/A Wave Diastolic/V Wave Mean AO 88 78 82 AO 94 82 87 Post Procedure Information Blood Pressure: 122/78 mmHg Rhythm: Atrial Fibrillation Post procedural instructions were given Closure Device Time Device Success/Fail 12/08/2018 12:44:00 PM Mechanical Compression Successful Site Checks Time Location Status Staff Sheath In? Note 12:40 PM Rt Wrist No bleeding/hematoma Jenn Helms RT (R) Pulses Time Site Pre-Procedure Post-Procedure Note Bilateral DP & PT 1+ 1+ Bilateral radial 2+ 2+ Updated by Robert Allen RN on 12/08/2018 12:59:04 PM electronically signed on 12/08/2018 1:00:28 PM with status of Final
--- NOTE | 2018-12-08 15:56 | Discharge Summary ---
- NOTES TO OUTPATIENT PROVIDER Notes to Outpatient Provider: Follow up with PCP in one week. Follow-up with cardiology Dr. Britton in 1-2 weeks. Please start taking Coumadin 5mg PO Dialy x 2 days and go for PT / INR on 12/10/18 and f/u with Coumadin clinic for further dosing. We increased your Metoprolol to 75mg PO BID Orders not resulted at time of discharge: Pending orders 12/07/18 10:00 ECG 12 lead ECG [ECG] Q6H 12/07/18 16:00 ECG 12 lead ECG [ECG] Q6H 12/07/18 22:00 ECG 12 lead ECG [ECG] Q6H Date of Encounter: 12/08/18 Time of Encounter: 15:54 - Discharge Diagnosis (1) Chest pain Priority: Primary Status: Acute Qualifiers: Chest pain type: precordial pain Qualified Code(s): R07.2 - Precordial pain (2) Atrial fibrillation with RVR Priority: Primary Status: Acute (3) Morbidly obese Priority: Secondary Status: Acute (4) DVT prophylaxis Priority: Secondary Status: Acute (5) CAD (coronary artery disease) Priority: Secondary Status: Chronic Qualifiers: Coronary Disease-Associated Artery/Lesion type: [place] artery [place] vs. transplanted heart: [place] heart Associated angina: angina presence unspecified Qualified Code(s): I25.10 - Atherosclerotic heart disease of [place] coronary artery without angina pectoris Hospital course: Mr. Lester is a 48 year old male with history of CAD s/p stent in 11/2017 on DAPT and PAF s/p cardioversion 5 years ago at [facility], now he presented to emergency department with complaint of palpitations and chest discomfort. As per patient he was walking home and going up the stairs after playing poker with his friends and suddenly developed a burning sensation in the middle of her chest that was nonradiating, and 4 out of 10 at 1 AM. Immediately after the pain started he also felt as though his heart was"getting out of his chest". In the emergency department he was found to be in A. fib with RVR, elevated troponin of 0.04 so he was started on Cardizem drip and heparin drip. His HR was well controlled with inc Metoprolol to 75 mg PO BID. He was evaluated by [facility] Community [facility] and did LHC which showed moderate three vessel CAD. Will d/c him home in stable condition today with inc Metoprolol 75mg PO BID and Coumadin for anti coag. Recommend him to f/u at Coumadin clinic for coumadin dosing. - Time Spent with Patient Total time spent providing and/or coordinating discharge services: - Discharge Medications Prescriptions: New Warfarin [Coumadin] 5 mg PO 1800 #15 tablet Atorvastatin [Lipitor] 40 mg PO HS #30 tablet Metoprolol [Lopressor] 75 mg PO BID #90 tablet Continued Sertraline [Zoloft] 150 mg PO HS Nitroglycerin [Nitrostat] 0.4 mg SL Q5M PRN PRN Reason: Chest Pain metFORMIN [Glucophage] 500 mg PO HS Clopidogrel [Plavix] 75 mg PO HS Aspirin [Adult Aspirin Regimen] 81 mg PO DAILY Bupropion HCl [Wellbutrin Xl] 300 mg PO HS Buspirone HCl [Buspar] 60 mg PO HS Losartan Potassium 100 mg PO HS traZODone [TraZODone] 50 - 100 mg PO HS Discontinued Metoprolol Tartrate 50 mg PO HS Home Medications: Sertraline [Zoloft] 150 mg PO HS 11/03/15 [History] Nitroglycerin [Nitrostat] 0.4 mg SL Q5M PRN 01/27/16 [History] Clopidogrel [Plavix] 75 mg PO HS 02/19/18 [History] metFORMIN [Glucophage] 500 mg PO HS 02/19/18 [History] Aspirin [Adult Aspirin Regimen] 81 mg PO DAILY 12/08/18 [History] Atorvastatin [Lipitor] 40 mg PO HS #30 tablet 12/08/18 [Rx] Bupropion HCl [Wellbutrin Xl] 300 mg PO HS 12/08/18 [History] Buspirone HCl [Buspar] 60 mg PO HS 12/08/18 [History] Losartan Potassium 100 mg PO HS 12/08/18 [History] Metoprolol [Lopressor] 75 mg PO BID #90 tablet 12/08/18 [Rx] Warfarin [Coumadin] 5 mg PO 1800 #15 tablet 12/08/18 [Rx] traZODone [TraZODone] 50 - 100 mg PO HS 12/08/18 [History] Allergies/Adverse Reactions: Allergy/AdvReac Type Severity Reaction Status Date / Time Sulfa (Sulfonamide Allergy Rash Verified 12/08/18 11:40 Antibiotics) promethazine [From Phenergan] AdvReac "MADE ME Verified 12/08/18 11:40 PSYCHO, ANXIOUS" Date of admission: 12/07/18 06:32 Primary care physician: Bruce Tripathi DO Consults: 12/07/18 07:35 Consult to Cardiology [CONS] Routine Comment: Consulting Provider: Card[facility] [place] Reason for Consult: first detected Afib, elevated troponin, chest pain Call Completed: No 12/07/18 09:29 Consult to Nutrition [CONS] Routine Comment: Consulting Provider: NUTRITION Reason for Dietary Consult: PO Supplementation - Constitutional Vitals: Temp Pulse Resp BP Pulse Ox 96.9 F L 74 18 94/51 94 12/08/18 08:03 12/08/18 08:03 12/08/18 08:03 12/08/18 08:03 12/08/18 08:03 General appearance: Present: A&O X 3, no acute distress, answers questions appropriately Exam: Gen: Alert, awake, Oriented to time,place and person Chest: Diminished breath sounds B/L, No wheezing, No crackles, No rales Heart: S1S2+ RRR No murmurs Abd: Soft, NT, BS +, No organomegaly Ext: No edema, pulses are palpable, No calf tenderness Neuro : Benign findings Skin: No rash. - Patient Status Disposition: Home, Self-Care Condition: Good - Discharge Instructions Follow Up With: Bruce Tripathi DO [Primary Care Provider] - 12/09/18 9:00 am () Aj Britton MD [Partnered Physician] - - Diet and Activity Activity: increase activity as tolerated Diet: low salt diet
--- NOTE | 2018-12-08 15:57 | Event Note ---
Date of Encounter: 12/08/18 Time of Encounter: 15:55 - Cardiology Event Note C today without intervention. Regarding a.fib, HR controlled on BB. Average HR 76. [id number] score 3 (CAD, HTN, DM), recommend intermediate school teacher anticoagulation. Being started on coumadin and ACMS referral per primary service. Discussed po tential anti-arrythmics with patient, however patient would like to be discharged and follow up outpatient with EP. Will arrange follow up. Cardiology will sign off.
[2018-12-08] MEDS ORDERED: *HR* Warfarin 5 MG TABLET PO ONE (17:11)
[2018-12-08 18:22] VITALS: BP 116/78
--- NOTE | 2018-12-09 15:27 | Electrocardiograph Report ---
[address] [address] Test Date: 2018-12-08 Pat Name: Conner Lester Department: 113 Room: 3B Gender: M Data Warehouse Analyst: Trent : 1970 Requested By: Clementina Hernandez Order Number: [id number] Reading MD: Aj Britton Measurements Intervals [place] Rate: 78 P: NV: 0 QRS: 9 QRSD: 109 T: 31 QT: 387 QTc: 420 Interpretive Statements ATRIAL FIBRILLATION ABNORMAL RHYTHM ECG Electronically Signed On 12-09-2018 15:25:49 EDT by Aj Britton
== END 2018-12-08 18:05 | disposition home or self-care (01) ==
LOC: 3BNU 03:28 → EMEROOARM 03:28 → SUATTDRO 06:32 → 3BNU 08:26
PROVIDERS: ADMIT Pediatrics; ATTEND Family Medicine

== ENCOUNTER 2019-06-01 20:02 | Observation (INO) ==
[2019-06-01 20:52] LABS: Basophils # 0.1 K/mcL (0.0-0.2); Basophils % 0.6 %; Eosinophils # 0.1 K/mcL (0.0-0.6); Eosinophils % 1.4 %; Hematocrit 45.5 % (37.5-50.1); Hemoglobin 15.6 g/dL (12.9-16.9); Immature Granulocytes % 0.2 % (0-4); Mean Corpuscular HGB Conc 34.3 g/dL (31.6-35.5); Mean Corpuscular Hemoglobin 27.5 pg (28.0-33.3); Mean Corpuscular Volume 80.2 fL (83.0-100.0); Mean Platelet Volume 10.1 fL (9.4-12.4); Monocytes # 0.6 K/mcL (0.0-1.3); Monocytes % 6.7 %; Neutrophils # 6.3 K/mcL (1.6-8.9); Platelet Count 294 K/mcL (140-400); Red Blood Count 5.67 M/mcL (4.19-5.50); Red Cell Distribution Width 13.8 % (11.5-14.5); Segmented Neutrophils % 69.1 %; White Blood Count 9.1 K/mcL (4.3-11.1)
[2019-06-01 21:00] LABS: INR 1.7; Prothrombin Time 19.1 Seconds (9.4-12.1)
[2019-06-01 21:03] LABS: Activated Partial Thrombo Time 41.8 Seconds (26.0-36.0)
[2019-06-01 21:13] LABS: BUN/Creatinine Ratio 13 (6-26); Blood Urea Nitrogen 16 mg/dL (6-20); Calcium 9.3 mg/dL (8.6-10.3); Carbon Dioxide 25 mEq/L (23-29); Chloride 105 mEq/L (98-107); Glucose 117 mg/dL (70-105); Osmolality,Calculated 292 (280-300); Potassium 3.4 mEq/L (3.5-5.1); Sodium 140 mEq/L (136-145); Troponin I < 0.03 ng/mL (< 0.04); eGFR For African Americans > 60 (> 60); eGFR For Non-African Americans > 60 (> 60)
[2019-06-01] MEDS ORDERED: Aspirin 81 MG TAB.CHEW PO ONE (21:30)
[2019-06-01] MEDS: Nitroglycerin 0.4 MG TAB.SUBL SL PRN ×2 (22:17→22:49)
[2019-06-01] MEDS ORDERED: Nitroglycerin 0.4 MG TAB.SUBL SL PRN (23:35)
[2019-06-01] MEDS ORDERED: traZODone 50 MG TABLET PO SCH (23:35)
[2019-06-01] MEDS ORDERED: Ringers Solution, Lactated 1,000 ML IVC SCH (23:45)
[2019-06-02] MEDS ORDERED: Potassium Chloride Elixir 20 MEQ/15 ML UDC PO ONE ×2 (00:15→05:15)
[2019-06-02] MEDS ORDERED: *HR* Warfarin 5 MG TABLET PO ONE ×2 (05:00→18:00)
[2019-06-02] MEDS ORDERED: Isosorbide MONOnitrate (24 HR) 30 MG TAB.ER.24H PO SCH (09:00)
[2019-06-02] MEDS ORDERED: BuPROPion XL (24 HR) 150 MG TABLET PO SCH (09:00)
[2019-06-02] MEDS ORDERED: hydrALAZINE 10 MG TABLET PO PRN ×2 (12:45→12:49)
[2019-06-02 15:11] LABS: INR 1.7; Prothrombin Time 19.3 Seconds (9.4-12.1)
[2019-06-02 15:15] VITALS: BP 122/77
[2019-06-02] MEDS ORDERED: Warfarin perPT PO PRN (18:00)
[2019-06-02] MEDS ORDERED: Ranolazine 500 MG TAB.ER.12H PO SCH (21:00)
[2019-06-02] MEDS ORDERED: Enoxaparin Weight Dosing SQ ONE (23:40)
== END 2019-06-02 17:03 | disposition home or self-care (01) ==
LOC: CDU 20:02 → EMEROOARM 20:02 → SUATTDRO 22:27 → CDU 23:00 → 2ANU 06-02 13:37
PROVIDERS: ADMIT Internal Medicine; ATTEND Internal Medicine

== ENCOUNTER 2022-05-18 14:21 | Inpatient (IN) ==
[2022-05-18 16:17] LABS: Basophils # 0.1 K/mcL (0.0-0.2); Basophils % 0.2 %; Eosinophils % 0.1 %; Hematocrit 41.6 % (37.5-50.1); Hemoglobin 13.5 g/dL (12.9-16.9); Immature Granulocytes % 0.4 % (0-4); Lymphocytes # 1.3 K/mcL (0.6-4.6); Lymphocytes % 6.1 %; Mean Corpuscular HGB Conc 32.5 g/dL (31.6-35.5); Mean Corpuscular Hemoglobin 27.8 pg (28.0-33.3); Mean Corpuscular Volume 85.6 fL (83.0-100.0); Monocytes # 1.3 K/mcL (0.0-1.3); Neutrophils # 19.1 K/mcL (1.6-8.9); Platelet Count 283 K/mcL (140-400); Red Blood Count 4.86 M/mcL (4.19-5.50); Red Cell Distribution Width 13.1 % (11.5-14.5); Segmented Neutrophils % 87.2 %
[2022-05-18 16:29] LABS: Bilirubin,Urine Negative (Negative); Blood,Urine Large (Negative); Clarity,Urine Turbid (Clear); Glucose,Urine (UA) Normal (Normal); Ketones,Urine Negative (Negative); Leukocyte Esterase,Urine Large (Negative); Nitrite,Urine Positive (Negative); Protein,Urine 100 mg/dL (Neg-Trace); Specific Gravity,Urine 1.022 (1.010-1.025)
[2022-05-18 16:37] LABS: Calcium 9.2 mg/dL (8.6-10.3); Potassium 3.9 mEq/L (3.5-5.1)
[2022-05-18 16:42] LABS: Color,Urine Dark Red (Yellow)
[2022-05-18] MEDS ORDERED: Iopamidol - 370 500 ML MLS IVP ONE ×2 (17:42→17:47)
[2022-05-18] MEDS ORDERED: cefTRIAXone 2,000 MG in 0.9 % Sodium Chloride 20 ML IVP ONE (17:55)
[2022-05-18] MEDS ORDERED: Ondansetron 4 MG/2 ML VIAL IVP PRN (19:53)
[2022-05-18] MEDS ORDERED: Naloxone 0.4 MG/ML INJ IVP PRN (19:53)
[2022-05-18] MEDS ORDERED: Dextrose Gel 15 GM/37.5 ML TUBE PO PRN ×2 (20:09)
[2022-05-18] MEDS ORDERED: *HR* Dextrose 50 % in Water (Syg) 50 ML SYRINGE IVP PRN (20:09)
[2022-05-18] MEDS ORDERED: D5% in Water 1,000 ML IVC PRN (20:09)
[2022-05-18] MEDS ORDERED: Ringers Solution, Lactated 1,000 ML IVC ONE ×2 (20:30→20:56)
[2022-05-18] MEDS ORDERED: *HR* OxyCODONE Immed Rel 5 MG TABLET PO PRN (20:57)
[2022-05-18] MEDS ORDERED: *HR* HYDROcodone/Acet 5/325 mg TABLET PO PRN (20:57)
[2022-05-18] MEDS: Piperacillin/Tazobactam 3.375 GM in 0.9 % Sodium Chloride Mini Bag 100 ML IVPB SCH (23:55)
[2022-05-19] MEDS: Acetaminophen 325 MG TABLET PO PRN ×2 (02:55→15:24)
[2022-05-19 03:14] LABS: Basophils # 0.1 K/mcL (0.0-0.2); Basophils % 0.2 %; Eosinophils % 0.1 %; Hematocrit 36.2 % (37.5-50.1); Lymphocytes # 1.8 K/mcL (0.6-4.6); Lymphocytes % 8.4 %; Mean Corpuscular HGB Conc 33.1 g/dL (31.6-35.5); Mean Corpuscular Hemoglobin 28.4 pg (28.0-33.3); Mean Corpuscular Volume 85.8 fL (83.0-100.0); Monocytes # 1.6 K/mcL (0.0-1.3); Monocytes % 7.8 %; Neutrophils # 17.4 K/mcL (1.6-8.9); Platelet Count 238 K/mcL (140-400); Red Blood Count 4.22 M/mcL (4.19-5.50); Red Cell Distribution Width 13.4 % (11.5-14.5); Segmented Neutrophils % 82.5 %
[2022-05-19 03:21] LABS: INR 2.4
[2022-05-19 03:33] LABS: BUN/Creatinine Ratio 19 (6-26); Blood Urea Nitrogen 17 mg/dL (6-20); C-Reactive Protein 140 mg/L (Less than 10); Calcium 8.5 mg/dL (8.6-10.3); Carbon Dioxide 24 mEq/L (23-29); Chloride 103 mEq/L (98-107); Glucose 106 mg/dL (70-105); Magnesium 1.8 mg/dL (1.6-2.6); Osmolality,Calculated 284 (280-300); Phosphorous 3.3 mg/dL (2.7-4.5); Potassium 3.5 mEq/L (3.5-5.1); Sodium 136 mEq/L (136-145)
[2022-05-19 03:42] LABS: Procalcitonin 0.15 ng/mL (0.00-0.15)
[2022-05-19 03:44] LABS: Prostate Specific Antigen 4.52 ng/mL (Less than 4.00)
[2022-05-19] MEDS ORDERED: Saliva Stimulant 44.3ml BOTTLE PO PRN (05:36)
[2022-05-19] MEDS: Lactobacillus 1 EACH CAP.SPRINK PO SCH ×2 (09:03→20:08)
[2022-05-19] MEDS: amLODIPine 5 MG TABLET PO SCH (09:03)
[2022-05-19] MEDS: BuPROPion XL (24 HR) 150 MG TABLET PO SCH (09:03)
[2022-05-19] MEDS: Ranolazine 500 MG TAB.ER.12H PO SCH ×2 (09:03→20:09)
[2022-05-19] MEDS: Isosorbide MONOnitrate (24 HR) 30 MG TAB.ER.24H PO SCH (09:04)
[2022-05-19] MEDS: carvediloL 6.25 MG TABLET PO SCH ×2 (09:04→17:52)
[2022-05-19] MEDS: Piperacillin/Tazobactam 3.375 GM in 0.9 % Sodium Chloride Mini Bag 100 ML IVPB SCH ×2 (09:10→17:53)
[2022-05-19] MEDS: Ringers Solution, Lactated 1,000 ML IVC SCH (13:17)
[2022-05-19] MEDS ORDERED: Warfarin perPT PO PRN (18:00)
[2022-05-19] MEDS ORDERED: *HR* Warfarin 5 MG TABLET PO ONE (18:00)
[2022-05-20] MEDS: Piperacillin/Tazobactam 3.375 GM in 0.9 % Sodium Chloride Mini Bag 100 ML IVPB SCH ×2 (00:27→08:30)
[2022-05-20] MEDS ORDERED: Ringers Solution, Lactated 1,000 ML ONE (05:25)
[2022-05-20] MEDS: Ringers Solution, Lactated 1,000 ML IVC SCH (05:28)
[2022-05-20 08:21] VITALS: BP 101/63; PULSE 83; TEMP 98.1; O2SAT 94
[2022-05-20] MEDS: amLODIPine 5 MG TABLET PO SCH (08:31)
[2022-05-20] MEDS: BuPROPion XL (24 HR) 150 MG TABLET PO SCH (08:31)
[2022-05-20] MEDS: carvediloL 6.25 MG TABLET PO SCH (08:31)
[2022-05-20] MEDS: Ranolazine 500 MG TAB.ER.12H PO SCH (08:32)
[2022-05-20] MEDS: Isosorbide MONOnitrate (24 HR) 30 MG TAB.ER.24H PO SCH (08:32)
[2022-05-20] MEDS: Lactobacillus 1 EACH CAP.SPRINK PO SCH (08:32)
== END 2022-05-20 11:19 | disposition home or self-care (01) | DRG 872 ==
LOC: EMEROOARM 14:21 → 3ANU 14:21 → SUATTDRO 19:41 → 3ANU 20:37
PROVIDERS: ADMIT Internal Medicine; ATTEND Internal Medicine